=== PATIENT | female | born 1955 | race Caucasian/White ===

== ENCOUNTER 2019-05-18 10:32 | Emergency (ER) | payer OTHER, SELFPAY ==
[2019-05-18 10:45] VITALS: BP 143/94; PULSE 76; RESP 18; TEMP 37; O2SAT 100
--- NOTE | 2019-05-18 11:04 | ED.EYEPROB ---
HPI - Eye Problem General Chief complaint: Eye Problems Stated complaint: eyes swollen Time Seen by Provider: 05/18/19 10:54 Source: patient and RN notes reviewed Mode of arrival: ambulatory Limitations: no limitations History of Present Illness HPI Narrative: Patient presents today with a 2-week history of dry, flaky, red and swollen skin surrounding both eyes. Worsening symptoms since yesterday. Reports profuse itching. She has tried triple antibiotic ointment and cold rags. Denies vision changes or drainage from the eye.Denies any recent illness.No known allergen exposures. chief complaint: eye redness Related Data Home Medications Medication Instructions Recorded Confirmed levothyroxine 150 mcg PO DAILY 05/18/19 05/18/19 Allergies Allergy/AdvReac Type Severity Reaction Status Date / Time No Known Allergies Allergy Verified 05/18/19 10:58 Review of Systems Review of Systems: Narrative: CONSTITUTIONAL: Denies body aches, fever, chills, or sweats. EYES: Denies visual changes, redness, or discharge.Redness, flaking, itching, and swollen skin surrounding both eyes ENT: Denies rhinorrhea, congestion, sore throat, or otalgia. CARDIOVASCULAR: Denies chest pain, palpitations, or edema. RESPIRATORY: Denies cough or dyspnea. GASTROINTESTINAL: Denies abdominal pain, nausea, vomiting, or diarrhea. GENITOURINARY: Denies dysuria or hematuria. SKIN: Denies rash, itching, or wounds. MUSCULOSKELETAL: Denies back pain, joint pain, or myalgia. NEUROLOGIC: Denies headache, numbness, tingling, or weakness. PSYCH: Denies depression or anxiety. PMFSH Comments At time of signature, I have reviewed and agree with nursing past medical, surgical, social and family history unless otherwise noted. Please see nursing chart for further information. There is no relevant family history pertinent to the presenting complaint Exam Narrative: Exam Narrative: GENERAL: Well-appearing, well-nourished, and in no acute distress. HEAD: Normocephalic, atraumatic. EYES: EOMI. PERRL. No redness or drainage. Conjunctivae normal.Bilateral periorbital skin erythema, flaking, and very mild edema, left greater than right. Areas do not seem to be cellulitic. ENT: Mucous membranes pink and moist. NECK: Normal AROM. CHEST: No respiratory distress. EXTREMITIES: Normal range of motion. No edema. SKIN: Warm, dry, no rash. Capillary refill normal. Normal skin turgor. NEURO: No focal deficits. Alert and oriented x3. Gait steady. PSYCH: Normal affect. No signs of depression or anxiety. Course Vital Signs Vital signs: Vital Signs Temperature 98.6 F 05/18/19 10:45 Pulse Rate 76 05/18/19 10:45 Respiratory Rate 18 05/18/19 10:45 Blood Pressure 143/94 H 05/18/19 10:45 Pulse Oximetry 100 05/18/19 10:45 Temperature 98.6 F 05/18/19 10:45 Pulse Rate 76 05/18/19 10:45 Respiratory Rate 18 05/18/19 10:45 Blood Pressure 143/94 H 05/18/19 10:45 Pulse Oximetry 100 05/18/19 10:45 Reviewed. Pt has been instructed to follow up with her PCP regarding her elevated blood pressure today. MDM - Eye Problem Differential Diagnosis Differential diagnosis: Likely corneal abrasion, conjunctivitis, periorbital cellulitis, subconjunctival hemorrhage and other (Eczema, contact dermatitis) Critical Care Time Critical Care Time Critical Care Time: No Discharge Plan Discharge Clinical Impression: Contact dermatitis Qualifiers: Contact dermatitis type: unspecified Contact dermatitis trigger: unspecified trigger Qualified Code(s): L25.9 - Unspecified contact dermatitis, unspecified cause Patient Disposition: Home, Self-Care Condition: Stable Instructions: Contact Dermatitis (DC) Additional Instructions: Take the Augmentin and prednisone as prescribed. 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 Your blood pressure was elevated above 120/80 today at Urgent Care. This puts you above the threshold for
== END 2019-05-18 11:12 | disposition home or self-care (01) ==
PROVIDERS: Emergency Provider Nurse Practitioner
DX: L25.9 Unspecified contact dermatitis, unspecified cause (principal)
CPT/HCPCS: 99213; G0463